=== PATIENT | female | born 1970 | race Hispanic/Latino ===

== ENCOUNTER 2018-10-27 13:32 | Outpatient (CLI) | payer MEDICAID ==
--- NOTE | 2018-10-27 14:03 | Mammography Report ---
BILATERAL MAMMOGRAM: FINDINGS: Baseline mammogram. The breast tissue is heterogeneously dense, which could obscure detection of small masses (approximately 50%-75% glandular). No mass, distortion, suspicious calcification, or skin change is seen. CAD was utilized. IMPRESSION: Negative mammogram. There is no mammographic evidence of malignancy. RECOMMENDATION: Follow-up per ACS guidelines. BI-RADS CATEGORY: 1 = Negative ACR BI-RADS MAMMOGRAPHIC CODES: 0 = Needs additional imaging evaluation; 1 = Negative; 2 = Benign; 3 = Probably benign; 4 = Suspicious; 5 = Malignant; 6 = Known biopsy-proven malignancy COMMENT: 1. Dense breast tissue, i.e., adenosis, fibrocystic changes, etc., may obscure an underlying neoplasm. 2. Approximately 10% of cancers are not detected with mammography. 3. A negative mammography report should not delay biopsy if a clinically suspicious mass is present. COMMENT: Patient follow-up letters are generated in [employer].
== END 2018-10-27 13:33 | disposition home or self-care (01) ==
LOC: MAMMO 13:32
PROVIDERS: ATTEND Nurse Practitioner Gerontology
DX: Z12.31 Encounter for screening mammogram for malignant neoplasm of breast (principal)
CPT/HCPCS: 77067

== ENCOUNTER 2019-02-20 10:54 | Inpatient (IN) | payer MEDICAID ==
--- NOTE | 2019-02-16 13:30 | Anesthesia Consultation ---
Anesthesia Consult and Med Hx Date of service: 02/16/19 - Airway Anesthetic Teeth Evaluation: Good ROM Head & Neck: Adequate Mental/Hyoid Distance: Adequate Mallampati Class: Class II Intubation Access Assessment: Good - Pulmonary Exam CTA: Yes - Cardiac Exam Cardiac Exam: RRR - Pre-Operative Health Status ASA Pre-Surgery Classification: ASA3 Proposed Anesthetic Plan: General - Pulmonary Hx Smoking: Yes COPD: Yes - Cardiovascular System Hx Hypertension: Yes (x 2 yrs) Hx Heart Murmur: Yes - Central Nervous System Hx Back Pain: Yes Hx Psychiatric Problems: Yes - Other Systems Hx Cancer: No - Additional Comments Anesthesia Medical History Comments: Patient with HTN, COPD , SMOKER, HYPOTHYROID for GA for hysterectomy
[2019-02-16 13:44] LABS: Basophils # (Auto) 0.1 K/mm3 (0.0-0.1); Basophils % (Auto) 0.5 % (0.0-1.8); Eosinophils # (Auto) 0.1 K/mm3 (0.0-0.4); Eosinophils % (Auto) 0.8 % (0.0-4.3); Hematocrit 43.6 % (30.3-42.9); Hemoglobin 14.5 gm/dl (10.1-14.3); Lymphocytes # (Auto) 2.2 K/mm3 (1.2-5.4); Lymphocytes % (Auto) 18.6 % (13.4-35.0); Mean Corpuscular HGB Conc 33 % (30-34); Mean Corpuscular Volume 88 fl (79-97); Monocytes # (Auto) 0.7 K/mm3 (0.0-0.8); Monocytes % (Auto) 5.5 % (0.0-7.3); Platelet Count 354 K/mm3 (140-440); Red Blood Count 4.94 M/mm3 (3.65-5.03); Red Cell Distribution Width 16.6 % (13.2-15.2)
[2019-02-16 13:56] LABS: BUN/Creatinine Ratio 10; Blood Urea Nitrogen 6 mg/dL (7-17); Calcium 10.1 mg/dL (8.4-10.2); Hemolysis Index 3
[~2019-02-20 10:54] MED LIST: LACTATED RINGERS 1,000 ML IV SCH; NEURONTIN PO NR; VERSED IV NR
--- NOTE | 2019-02-20 11:13 | History and Physical Report ---
History of Present Illness Date of examination: 02/20/19 Date of admission: 02/20/19 10:54 Chief complaint: Pelvic pain with large left ovarian cyst History of present illness: Pt is a 48yo WF LMP 02/13/19 presents for surgical evaluation and treatment of menorrhagia with a large left ovarian cyst. Pelvic u/s showed an enlarged uterus 10 x 7 x 6cm with a large left ovarian mass 8 x 4.9cm. CA125 - WNL. She now presents for a Total Abdominal Hysterectomy with Bilateral SalpingoOophorectomy. Past History Past Medical History: hypertension, thyroid disease Past Surgical History: section (x3) [employer] History: fibroids, other (ovarian cyst) Social history: no significant social history, single, smoking Medications and Allergies Allergies Allergy/AdvReac Type Severity Reaction Status Date / Time No Known Allergies Allergy Unverified 02/15/19 15:03 Home Medications Medication Instructions Recorded Confirmed Last Taken Type ALBUTEROL NEB's [Proventil] 2.5 mg IH TID PRN 02/16/19 02/16/19 02/19/19 14:00 History Albuterol Sulfate [Proventil Hfa] 2 puff IH Q4H PRN 02/16/19 02/16/19 02/20/19 05:00 History Furosemide [Lasix TAB] 40 mg PO DAILY 02/16/19 02/16/19 02/19/19 14:00 History Levothyroxine [Synthroid] 100 mcg PO QAM 02/16/19 02/16/19 02/19/19 14:00 History Metoprolol [Lopressor] 25 mg PO DAILY 02/16/19 02/16/19 02/20/19 05:00 History Active Meds: Active Medications Lactated Ringer's (Lactated Ringers) 1,000 mls @ 100 mls/hr IV DIRECT HERI Review of Systems All systems: negative - Vital Signs Vital signs: Vital Signs Temp Pulse Resp BP Pulse Ox 98.8 F 70 20 132/84 98 02/16/19 13:10 02/16/19 13:10 02/16/19 13:10 02/16/19 13:10 02/16/19 13:10 Temp Pulse Resp BP Pulse Ox 98.8 F 70 20 132/84 98 02/16/19 13:10 02/16/19 13:10 02/16/19 13:10 02/16/19 13:10 02/16/19 13:10 - Physical Exam Breasts: Positive: deferred Cardiovascular: Regular rate Lungs: Positive: Clear to auscultation Abdomen: Positive: normal appearance Genitourinary (Female): Positive: normal external genitalia Uterus: Positive: enlarged Adnexa: left: mass Extremities: Positive: normal Results Result Diagrams: 02/16/19 13:15 02/16/19 13:15 All other labs normal. Ultrasound: report reviewed Assessment and Plan - Patient Problems (1) Menorrhagia with irregular cycle Onset Date: 02/20/19 Current Visit: Yes Status: Acute Plan to address problem: A: Menorrhagia Left ovarian cyst P: Admit for a Total Abdominal Hysterectomy with Bilateral SaplingooOphorectomy (2) Left ovarian cyst Onset Date: 02/20/19 Current Visit: Yes Status: Acute
[2019-02-20] MEDS ORDERED: ANCEF/STERILE WATER 2 GM/20 ML 2 GM/20 ML SYRINGE IV NR (12:00)
[2019-02-20] MEDS ORDERED: VERSED ONE ×2 (12:58→14:33)
[2019-02-20] MEDS ORDERED: SUBLIMAZE ONE ×2 (12:59→14:15)
[2019-02-20] MEDS ORDERED: MARCAINE-EPI 0.5%-1:200,000 INFILTRATI ONE (13:00)
[2019-02-20] MEDS ORDERED: XYLOCAINE 1% 20 mL ONE (13:00)
[2019-02-20] MEDS ORDERED: SUBLIMAZE IV PRN (13:07)
[2019-02-20] MEDS ORDERED: ZOFRAN IV PRN ×2 (13:07→16:10)
--- NOTE | 2019-02-20 13:07 | Anesthesia Day of Surgery ---
Anesthesia Day of Surgery - Day of Surgery Patient Examined: Yes Patient H&P Reviewed: Yes Patient is NPO: Yes Beta Blockers: Yes
[2019-02-20] MEDS ORDERED: XYLOCAINE MPF 2% ONE (14:15)
[2019-02-20] MEDS ORDERED: DIPRIVAN 10 MG/ML IV ONE (14:15)
[2019-02-20] MEDS ORDERED: DECADRON ONE (14:15)
[2019-02-20] MEDS ORDERED: TORADOL ONE (14:15)
[2019-02-20] MEDS ORDERED: ZEMURON IV ONE (14:15)
[2019-02-20] MEDS ORDERED: ZOFRAN ONE (14:15)
[2019-02-20] MEDS ORDERED: DILAUDID ONE ×2 (14:32→16:27)
[2019-02-20] MEDS ORDERED: PROAIR IH ONE (15:09)
[2019-02-20] MEDS ORDERED: ROBINUL ONE (15:51)
[2019-02-20] MEDS ORDERED: BLOXIVERZ ONE (15:51)
[2019-02-20] MEDS ORDERED: TYLENOL PO PRN (16:10)
[2019-02-20] MEDS ORDERED: NARCAN 0.4 MG/1 ML IV PRN (16:10)
[2019-02-20] MEDS ORDERED: MILK OF MAGNESIA PO PRN (16:10)
[2019-02-20] MEDS ORDERED: PERCOCET 5/325 PO PRN (16:10)
[2019-02-20] MEDS ORDERED: DULCOLAX PR PRN (16:10)
[2019-02-20] MEDS ORDERED: D5LR 1,000 ML IV SCH (17:00)
[2019-02-20] MEDS ORDERED: CLIMARA TD SCH (17:00)
[2019-02-20] MEDS: DILAUDID IV PRN ×2 (17:04→17:16)
--- NOTE | 2019-02-20 17:19 | Post Anesthesia Evaluation ---
- Post Anesthesia Evaluation Patient Participated: Yes Airway Patent: Yes Stable Respiratory Function: Yes Nausea/Vomiting: No Temp > 96.8F: Yes Pain Manageable: Yes Adequeate Hydration: Yes Anesthesia Complications: No Block Receding Appropriately: Not Applicable Patient on Ventilator: No
--- NOTE | 2019-02-20 18:12 | Operative Report ---
Operative Report Operative Report: Date of procedure: 02/20/2019 Pre-operative diagnosis: 1. Symptomatic uterine fibroids 2. Menorrhagia 3. Left ovarian cyst Post-operative diagnosis: Same Procedure name(s): 1. Total abdominal hysterectomy 2. Bilateral salpingo- oophorectomy Surgeon: Yonatan Odom MD Commercial Announcer: Angie Luis CSA Anesthesia: VEL Block followed by general endotracheal intubation EBL: 100 mL's Findings: A 10-12 week size uterus with an 8 x 9 cm left ovarian mass, enlarged cystic right ovary and normal tubes bilaterally. Procedure: After the patient was first correctly identified and after general anesthesia was administered she was prepped and draped in usual in the usual sterile fashion and placed in the dorsolithotomy position. The skin knife was used to make a transverse skin incision through the previous skin scars. The incision was extended down to the layer of the fascia which was nicked in the midline and extended laterally using Bovie cautery. The rectus muscles were dissected off the rectus fascia both superiorly and inferiorly, the rectus bellies in the midline and the peritoneum was entered under direct visualization. Exploration of the pelvic organs found the uterus to be enlarged and the tubes were normal bilaterally. There was an 8 x 9 cm left ovarian mass, and the right ovary was also cystic and enlarged. Next the bowels were packed back and the round ligaments were grasped, cauterized and cut using the Enseal device. The infundibulopelvic ligament was clamped, cauterized and cut, thus freeing the right ovary from the right pelvic sidewall. The same procedure was performed on the left. The left round ligament was clamped, cauterized and cut using the Enseal device, and the left infundibulopelvic ligament was clamped, cauterized and cut thus freeing the left ovary and the left ovarian mass from the left pelvic sidewall. The uterine vessels were then skeletonized bilaterally, and the bladder flap was taken down anteriorly. The uterine vessels were then doubly clamped cut and suture ligated bilaterally, and the cardinal ligaments were sequentially clamped cut and suture ligated down to the level of the uterosacral ligaments. The cervix was then amputated from the vaginal cuff and the specimen was handed off the surgical field. The vaginal cuff was then made hemostatic using several sutures of 0 Vicryl suture in a [id number] configuration. After excellent hemostasis was assured copious amounts of irrigation was then performed. The Tisseel sealant was then sprayed across the vaginal cuff and the superior pedicles bilaterally and after excellent hemostasis was assured the procedure was considered complete. All instruments were removed from the abdomen, and the peritoneum was closed using 0 Vicryl suture in a running interlocking fashion and the rectus muscles were also loosely re-approximated using 0 Vicryl suture in a [id number] configuration. The fascia was then re-approximated using 0 Vicryl suture in a running interlocking fashion, the subcutaneous layer made hemostatic using Bovie cautery and the skin edges re-approximated using 4-0 Vicryl suture in a sub- cuticular fashion. Patient tolerated the procedure well was transported to recovery room in stable condition.
[2019-02-20] MEDS: TORADOL IV SCH (19:33)
[2019-02-20] MEDS: ANCEF/NS 1 GM/50 ML 1 GM/50 ML BAG IV SCH (21:38)
[2019-02-21] MEDS: TORADOL IV SCH ×4 (02:01→17:39)
[2019-02-21] MEDS: ANCEF/NS 1 GM/50 ML 1 GM/50 ML BAG IV SCH (04:46)
[2019-02-21 06:49] LABS: Hematocrit 38.1 % (30.3-42.9); Hemoglobin 12.4 gm/dl (10.1-14.3)
--- NOTE | 2019-02-21 09:02 | Progress Note ---
Assessment and Plan - Patient Problems (1) Menorrhagia with irregular cycle Onset Date: 02/20/19 Current Visit: Yes Status: Resolved (2) Left ovarian cyst Onset Date: 02/20/19 Current Visit: Yes Status: Resolved (3) S/P MARCO-BSO (total abdominal hysterectomy and bilateral salpingo- oophorectomy) Onset Date: 02/21/19 Current Visit: Yes Status: Resolved Plan to address problem: A: S/P MACRO/BSO - POD #1 Doing well P: Continue RPOC Anticipate discharge in 24-48hrs Subjective - Subjective Date of service: 02/21/19 Principal diagnosis: s/p MARCO/BSO - POD #1 Interval history: Pt is s/p a Total Abdominal Hysterectomy with Bilateral SalpingoOophorectomy, and feeling well. She is tolerating a liquid diet without nausea or vomiting, ambulating and voiding without difficulty. Patient reports: appetite normal, voiding normally, pain poorly controlled, ambulating normally, no dizzy ambulation, no flatus, no nauseated Objective - Vital Signs Latest vital signs: Vital Signs Temp Pulse Resp BP BP Pulse Ox 02/21/19 04:13 97.3 F L 54 L 20 130/69 93 02/20/19 23:12 97.8 F 80 20 131/78 95 02/20/19 19:20 98.2 F 69 18 132/77 95 02/20/19 18:28 97.6 F 77 16 120/75 96 02/20/19 17:30 70 14 132/76 95 02/20/19 17:15 79 14 142/73 95 02/20/19 17:00 97.0 F L 70 14 138/96 95 02/20/19 16:45 71 14 135/81 99 02/20/19 16:40 73 14 126/84 99 02/20/19 16:35 72 14 124/82 99 02/20/19 16:28 97.4 F L 77 14 141/80 99 02/20/19 13:15 82 16 115/70 97 02/20/19 13:10 73 13 106/73 98 02/20/19 13:05 75 13 100/61 96 02/20/19 13:00 72 14 102/70 95 02/20/19 11:15 99.3 F 75 16 114/73 97 02/20/19 11:05 99.3 F 75 16 114/73 97 Intake and Output 02/20/19 02/21/19 02/21/19 22:59 06:59 14:59 Intake Total 1200 240 Output Total 40 800 Balance 1160 -560 Intake: IV 1200 ANCEF/NS 1 GM/50 ML 1 gm 50 In 50 ml @ 100 mls/hr IV Q8H HERI Rx#:[id number] Oral 240 Output: Urine 40 800 Indwelling Catheter 300 Void 500 Other: Total, Intake Amount 240 Total, Output Amount 600 Voiding Method Indwelling Catheter # Voids Void 1 - Exam Abdomen: Present: normal appearance, soft Extremities: Present: normal Incision: Present: normal, dry, intact, dressed - Labs Labs: Laboratory Tests 02/16/19 02/16/19 02/16/19 13:15 13:15 13:15 WBC 12.0 H RBC 4.94 Hgb 14.5 H Hct 43.6 H MCV 88 MCH 29 MCHC 33 RDW 16.6 H Plt Count 354 Lymph % (Auto) 18.6 [place] % (Auto) 5.5 Eos % (Auto) 0.8 Baso % (Auto) 0.5 Lymph # 2.2 [place] # 0.7 Eos # 0.1 Baso # 0.1 Seg Neutrophils % 74.6 H Seg Neutrophils # 8.9 H Sodium 143 Potassium 3.9 Chloride 99.8 Carbon Dioxide 29 Anion Gap 18 BUN 6 L Creatinine 0.6 L Estimated GFR > 60 BUN/Creatinine Ratio 10 Glucose 90 Calcium 10.1 HCG, Qual Negative Blood Type Antibody Screen 02/20/19 02/21/19 11:30 06:01 WBC RBC Hgb 12.4 Hct 38.1 MCV MCH MCHC RDW Plt Count Lymph % (Auto) [place] % (Auto) Eos % (Auto) Baso % (Auto) Lymph # [place] # Eos # Baso # Seg Neutrophils % Seg Neutrophils # Sodium Potassium Chloride Carbon Dioxide Anion Gap BUN Creatinine Estimated GFR BUN/Creatinine Ratio Glucose Calcium HCG, Qual Blood Type A NEGATIVE Antibody Screen Negative
[2019-02-21] MEDS: NORCO 5/325 PO PRN ×3 (09:35→20:29)
[2019-02-21] MEDS: COLACE PO SCH ×2 (09:36→21:44)
[2019-02-21] MEDS ORDERED: PROAIR IH PRN (14:31)
[2019-02-21] MEDS ORDERED: PROVENTIL IH PRN (14:40)
[2019-02-21] MEDS: PROVENTIL IH SCH (14:54)
[2019-02-22] MEDS: NORCO 5/325 PO PRN ×3 (04:44→14:28)
--- NOTE | 2019-02-22 08:44 | Progress Note ---
Assessment and Plan - Patient Problems (1) Menorrhagia with irregular cycle Onset Date: 02/20/19 Current Visit: Yes Status: Resolved (2) Left ovarian cyst Onset Date: 02/20/19 Current Visit: Yes Status: Resolved (3) S/P MARCO-BSO (total abdominal hysterectomy and bilateral salpingo- oophorectomy) Onset Date: 02/21/19 Current Visit: Yes Status: Resolved Plan to address problem: A: S/P MARCO/BSO - POD #2 Doing well P: May go home today. Subjective - Subjective Date of service: 02/22/19 Principal diagnosis: s/p MARCO/BSO - POD #2 Interval history: Pt is s/p a Total Abdominal Hysterectomy with Bilateral SalpingoOophorectomy, and feeling well. She is tolerating a reg diet without nausea or vomiting, ambulating and voiding without difficulty. Patient reports: appetite normal, voiding normally, pain well controlled, flatus, ambulating normally, no dizzy ambulation, no nauseated Objective - Vital Signs Latest vital signs: Vital Signs Temp Pulse Pulse Resp Resp BP BP 02/22/19 04:02 98.2 F 47 L 20 149/75 02/21/19 23:23 98.9 F 60 20 122/73 02/21/19 21:39 53 L 14 02/21/19 20:35 98.6 F 56 L 20 125/65 02/21/19 16:50 98.5 F 65 20 111/73 02/21/19 14:56 62 14 02/21/19 12:10 98.2 F 70 20 139/53 02/21/19 10:00 20 02/21/19 09:05 99 F 66 20 127/66 Pulse Ox 02/22/19 04:02 94 02/21/19 23:23 97 02/21/19 21:39 02/21/19 20:35 98 02/21/19 16:50 02/21/19 14:56 02/21/19 12:10 02/21/19 10:00 02/21/19 09:05 93 Intake and Output 02/21/19 02/22/19 02/22/19 22:59 06:59 14:59 Intake Total 120 120 Output Total 300 1400 Balance -180 -1280 Intake: Oral 120 120 Output: Urine 300 1400 Void 300 1400 Other: Total, Intake Amount 120 120 Total, Output Amount 300 600 Voiding Method Toilet - Exam Breasts: Present: deferred Abdomen: Present: normal appearance, soft Extremities: Present: normal Incision: Present: normal, dry, intact
[2019-02-22] MEDS: COLACE PO SCH (09:06)
[2019-02-22] MEDS: PROVENTIL IH SCH ×3 (09:44→14:48)
--- NOTE | 2019-02-22 18:20 | Discharge Summary ---
Providers - Providers Date of Admission: 02/20/19 10:54 Date of discharge: 02/22/19 Attending physician: ASYIA FERRERA Primary care physician: YON ETIENNE NP Hospitalization Reason for admission: other (Symptomatic uterine fibroids; Menorrhagia; Left ovarian cyst) Procedure: other (Total Abdominal Hysterectomy with Bilateral SalpingoOophorectomy) Episiotomy: none Laceration: none Incision: normal, dry, intact Other procedures: none complications: none Discharge diagnosis: other (s/p MARCO/BSO) Hospital course: Pt is a 48yo WF LMP 02/13/19 who presented for surgical evaluation and treatment of menorrhagia with a large left ovarian cyst. Pelvic u/s showed an enlarged uterus 10 x 7 x 6cm with a large left ovarian mass 8 x 4.9cm. CA125 - WNL. She underwent an uncomplicated Total Abdominal Hysterectomy with Bilateral SalpingoOophorectomy and tolerated the procedure well. By POD #2 she was tolerating a reg diet without nausea or vomiting, ambulating and voiding without difficulty. She was therefore discharged to home on POD #2 in stable condition. Condition at discharge: Good Disposition: DC-01 TO HOME OR SELFCARE - Discharge Diagnoses (1) Menorrhagia with irregular cycle Status: Resolved (2) Left ovarian cyst Status: Resolved (3) S/P MARCO-BSO (total abdominal hysterectomy and bilateral salpingo- oophorectomy) Status: Resolved Plan - Discharge Medications Prescriptions: Estradiol [[place] 0.1mg/24hr] 0.1 mg TD 2XW #4 patch Ibuprofen [Motrin] 800 mg PO Q8HR PRN #30 tablet PRN Reason: Pain, Mild (1-3) HYDROcodone/APAP 5-325 [[place] 5-325 mg TAB] 1 each PO Q6HR PRN #30 tablet PRN Reason: Pain, Moderate (4-6) - Provider Discharge Summary Activity: routine, no sex for 6 weeks, no heavy lifting 4 weeks, no strenuous exercise Diet: routine Instructions: routine Additional instructions: [] Smoking cessation referral if applicable(refer to patient education folder for contact #) [] Refer to [facility]'s [facility] Booklet Call your doctor immediately for: * Fever > 100.5 * Heavy vaginal bleeding ( >1 pad per hour) * Severe persistent headache * Shortness of breath * Reddened, hot, painful area to leg or breast * Drainage or odor from incision. * Keep incision clean and dry at all times and follow doctor's instructions regarding bathing/showering - Follow up plan Follow up: YON ETIENNE NP [Primary Care Provider] - 14 Days ASIYA FERRERA MD [Staff Physician] - 14 Days
[2019-02-22 19:36] VITALS: BP 130/83
== END 2019-02-22 19:27 | disposition home or self-care (01) | DRG 743 ==
LOC: 3A 10:54 → OB 17:15
PROVIDERS: ADMIT Obstetrics & Gynecology; ATTEND Obstetrics & Gynecology
PROC: 0UT90ZZ Resection of Uterus, Open Approach (ICD-10-PCS; principal; 2019-02-20)
PROC: 0UT20ZZ Resection of Bilateral Ovaries, Open Approach (ICD-10-PCS; 2019-02-20)
DX: D25.9 Leiomyoma of uterus, unspecified (principal); N92.0 Excessive and frequent menstruation with regular cycle; N83.202 Unspecified ovarian cyst, left side; F17.200 Nicotine dependence, unspecified, uncomplicated; J44.9 Chronic obstructive pulmonary disease, unspecified; I10 Essential (primary) hypertension; Z79.899 Other long term (current) drug therapy
CPT/HCPCS: 36415; 64450; 80048; 84703; 85014; 85018; 85025; 86850; 86900; 86901; 88307; 94640; G0378; C9250; J0690; J1100; J1170; J1885; J2250; J2405; J2704; J2710; J3010; J7120; J7121